=== PATIENT | female | born 1950 | race Caucasian/White ===

== ENCOUNTER 2017-05-30 07:49 | Outpatient (CLI) | payer MEDICARE, OTHER, SELFPAY ==
--- NOTE | 2017-05-30 | COLBX_PTH ---
PATIENT: PRISCILA BHAKTA LOC: EN U#:[id number] AGE/SX: 67/F ROOM: RE05/30/[address]: Dr. Gloria Chowdhury MD : 1950 BED: DIS: 05/30/2017 SPEC #: [id number] RECD: 05/30/17 11:20 STATUS: NORIS ISIDRO #: [id number] DIONNA: 05/30/17 00:[address]: Gloria Chowdhury DEPT: SURGICAL PATHOLOGY RECD BY: Melissa Parker ENTERED: 05/30/17 13:30 SP TYPE: COLON BX OTHR DR: Dr. Leda Cuba MD Tissues: A - Cecum, NOS B - Rectum, NOS Procedures: Surgery Specimen Level IV HEADER OPERATION: Colonoscopy PRE-OP DIAGNOSIS: Screening TISSUE SUBMITTED: A ? Cecal polyp biopsy, B ? Rectal polyp biopsy MICROSCOPIC DIAGNOSIS A. Cecal polyp, biopsy: Tubular adenoma. B. Rectal polyp, biopsy: Fragments of inflammatory polyp. AM:mamie 05/31/17 MICROSCOPIC DESCRIPTION Slides are reviewed. GROSS DESCRIPTION A - Received in fixative is one container labeled with the patient's name and designated cecal polyp biopsy. The specimen consists of one irregular fragment of light enciso soft tissue that measures 0.2 x 0.2 x 0.1 cm. The specimen is totally submitted in one cassette. B - Received in fixative is one container labeled with the patient's name and designated rectal polyp biopsy. The specimen consists of two irregular fragments of light enciso soft tissue that in aggregate measure 0.5 x 0.3 x 0.2 cm. The specimen is totally submitted in one cassette. / AM:mamie 05/30/17 TC:5 CPT: 60662 x2
[2017-05-30 08:11] VITALS: BP 141/77; PULSE 115; RESP 16; TEMP 36.7; O2SAT 97; BMI 41.3
[2017-05-30 09:23] VITALS: BP 116/72; BP 141/77; PULSE 95; RESP 16; TEMP 36; O2SAT 95
[2017-05-30 09:25] VITALS: BP 131/72; BP 141/77; PULSE 98; RESP 16; O2SAT 95
[2017-05-30 09:30] VITALS: BP 123/83; BP 141/77; PULSE 88; RESP 16; O2SAT 95
[2017-05-30 09:35] VITALS: BP 123/79; BP 141/77; PULSE 85; RESP 16; TEMP 36.1; O2SAT 96
[2017-05-30 10:08] VITALS: BP 141/77
--- NOTE | 2017-05-30 11:22 | OP.PCM_ITS ---
Report of Operation Date of Procedure: 05/30/17 Pre-Operative Diagnosis: Screening for colon cancer Type of Anesthesia:: MAC Anesthesiologist: Vargas Gallegos Specimen's removed: Rectal polyp Description of Procedure: Procedure: Colonoscopy After reviewing the risks benefits, the patient was deemed in satisfactory condition to undergo procedure. After obtaining informed consent, the scope was passed under direct visualization. Throughout the procedure, the patient's blood pressure pulse and position saturations were monitored continuously anesthesia. The colonoscope was introduced through the anus and advanced to the cecum, identified by the appendiceal orifice, IC valve and transillumination. The colonoscopy was performed without difficulty. The patient tolerated procedure well. Quality of bowel prep was good. Findings: The perianal and digital rectal exam revealed internal and external hemorrhoids grade 1. Small rectal polyp was seen and removed with forceps. Otherwise the colon ( entire examined portion) appeared normal. Retroflexed view of the distal rectum and anal verge was normal and showed grade 1 internal hemorrhoids Impression: 1. Small rectal polyp 2. The distal rectal and anal verge were normal on retroflexed view. Recommendations: Await biopsy Repeat colonoscopy in 5-10 years for screening purposes depending on pathology
== END 2017-05-30 10:08 | disposition home or self-care (01) ==
LOC: EN 07:52 → ACINP 12:02
PROVIDERS: Family Provider Internal Medicine; PCP Internal Medicine; Visit Provider Surgery
PROC: 0DJD8ZZ Inspection of Lower Intestinal Tract, Via Natural or Artificial Opening Endoscopic (ICD-10-PCS; CPT 45378; principal; 2017-05-30 08:55)
DX: Z12.11 Encounter for screening for malignant neoplasm of colon (principal); D12.0 Benign neoplasm of cecum; K62.1 Rectal polyp; K64.0 First degree hemorrhoids
CPT/HCPCS: 45380; 88305; J7120

== ENCOUNTER → 2017-08-23 13:53 | Outpatient (CLI) | payer MEDICARE, OTHER, SELFPAY ==
[2017-08-20 08:48] LABS: Absolute Lymphocyte Count 1.48 X10^3/ul (0.83-4.51); Absolute Neutrophil Count 5.2 X10^3/uL (2.0-7.7); Basophil# 0.05 X10^3/uL; Basophil% 0.7 % (0-1); Eosinophil# 0.23 X10^3/uL; Eosinophils% 3.1 % (0-5); Hematocrit 39.7 % (37-47); Hemoglobin 12.6 g/dl (12.0-15.0); Lymphocyte # 1.48 X10^3/ul (4.0); Lymphocyte % 20.1 % (19-41); Mean Corp Hgb Conc 31.7 g/gl (32-36); Mean Corpuscular Hgb 29.6 pg (27.0-32.0); Mean Corpuscular Volume 93.4 fL (81-99); Mean Platelet Vol. 10.5 fl (6.2-12.0); Monocyte# 0.38 X10^3/uL; Monocyte% 5.1 % (0-10); Neutrophil # 5.23 X10^3/uL (2.7-7.7); Neutrophil % 70.9 % (47-70); Platelet Count 288 K/mm3 (150-450); RBC Distribution Width CV 13.6 % (11.6-14.6); RBC Distribution Width SD 44.5 fl (35.1-43.9); Red Blood Count 4.25 M/mm3 (4.2-5.4); White Blood Count 7.4 K/mm3 (4.4-11.0)
[2017-08-20 08:55] LABS: POSITIVE COUNT NO; POSITIVE DIFFERENTIAL NO; POSITIVE MORPHOLOGY NO
[2017-08-20 09:12] LABS: Creatinine, Serum 0.66 mg/dL (0.55-1.02); EST Glomerular Filtration Rate 95 mL/min (>60); Est Glom Filt Rate - Afr Amer 115 mL/min (>60)
--- NOTE | 2017-08-23 13:55 | CT_ITS ---
STUDY: CT ABDOMEN AND PELVIS WITH CONTRAST REASON FOR EXAM: Female, 67 years old. History of endometrial carcinoma. This is a radiation treatment planning examination. RADIATION DOSAGE (If Supplied By Facility): CTDIvol = ( 16.32 ) mGy, DLP = ( 1406.08 ) mGycm TECHNIQUE: Transaxial images were obtained from the dome of the diaphragm to the symphysis pubis with oral contrast. 100 ml of Isovue 300 contrast was administered. Individualized dose optimization techniques were used for this CT. COMPARISON: None. FINDINGS: There is a 1.8 cm x 1.3 cm spiculated nodular density in the posterior aspect of the lingular segment of the left upper lobe. Mild increased markings at both lung bases suggestive of bibasilar atelectasis. The visualized portions of the heart are within normal limits. 6.8 mm hypodense nodule in the peripheral lateral portion of the right lobe of the liver most likely represents a small cyst. Normal gallbladder and extrahepatic biliary system. Normal spleen. Normal pancreas. Normal bilateral adrenal glands. Normal right kidney. Normal left kidney. Normal visualized stomach. Normal small intestine. There are scattered colonic diverticula consistent with diverticulosis. There is non-visualization of the appendix. Normal abdominal aorta. Normal inferior vena cava. There is borderline retroperitoneal lymphadenopathy with enlarged nodes no greater than 10mm in the short axis diameter. Normal urinary bladder. There is absence of the uterus consistent with a prior hysterectomy. A small amount of free fluid is seen in the posterior cul-de-sac. Small bilateral inguinal hernias containing fat. Normal osseous structures. CT/Abdomen/Pelvis WITH Contrast IMPRESSION: Small amount of free fluid in the cul-de-sac. Spiculated nodular density in the left lower lobe. Electronically Signed: Reza Bangura MD at 9:06 EST Tel [phone], Service support ,
== END ==
PROVIDERS: Family Provider Internal Medicine; PCP Internal Medicine; Visit Provider Radiology Radiation Oncology
DX: Z01.818 Encounter for other preprocedural examination (principal); C54.1 Malignant neoplasm of endometrium
CPT/HCPCS: 36415; 74177; 82565; 85025; Q9967

== ENCOUNTER → 2017-09-13 09:04 | Outpatient (CLI) | payer MEDICARE, OTHER, SELFPAY ==
[2017-09-13 10:25] LABS: Absolute Lymphocyte Count 0.76 X10^3/ul (0.83-4.51); Absolute Neutrophil Count 3.3 X10^3/uL (2.0-7.7); Basophil# 0.02 X10^3/uL; Basophil% 0.4 % (0-1); Eosinophils% 4.3 % (0-5); Hematocrit 39.4 % (37-47); Hemoglobin 12.4 g/dl (12.0-15.0); Lymphocyte # 0.76 X10^3/ul (4.0); Lymphocyte % 16.5 % (19-41); Mean Corp Hgb Conc 31.5 g/gl (32-36); Mean Corpuscular Hgb 29.6 pg (27.0-32.0); Mean Platelet Vol. 10.7 fl (6.2-12.0); Monocyte# 0.29 X10^3/uL; Monocyte% 6.3 % (0-10); Neutrophil # 3.32 X10^3/uL (2.7-7.7); Neutrophil % 72.3 % (47-70); POSITIVE COUNT NO; POSITIVE DIFFERENTIAL NO; POSITIVE MORPHOLOGY NO; Platelet Count 207 K/mm3 (150-450); RBC Distribution Width CV 13.9 % (11.6-14.6); RBC Distribution Width SD 45.4 fl (35.1-43.9); Red Blood Count 4.19 M/mm3 (4.2-5.4); White Blood Count 4.6 K/mm3 (4.4-11.0)
== END ==
PROVIDERS: Family Provider Internal Medicine; PCP Internal Medicine; Visit Provider Radiology Radiation Oncology
DX: C54.1 Malignant neoplasm of endometrium (principal)
CPT/HCPCS: 36415; 85025

== ENCOUNTER → 2017-10-03 08:00 | Outpatient (CLI) | payer MEDICARE, OTHER, SELFPAY ==
[2017-10-03 08:40] LABS: Absolute Lymphocyte Count 0.51 X10^3/ul (0.83-4.51); Basophil# 0.03 X10^3/uL; Basophil% 0.6 % (0-1); Eosinophil# 0.24 X10^3/uL; Eosinophils% 4.7 % (0-5); Hematocrit 39.1 % (37-47); Hemoglobin 12.4 g/dl (12.0-15.0); Lymphocyte # 0.51 X10^3/ul (4.0); Lymphocyte % 9.9 % (19-41); Mean Corp Hgb Conc 31.7 g/gl (32-36); Mean Corpuscular Hgb 29.8 pg (27.0-32.0); Mean Platelet Vol. 10.3 fl (6.2-12.0); Monocyte# 0.34 X10^3/uL; Monocyte% 6.6 % (0-10); Platelet Count 259 K/mm3 (150-450); RBC Distribution Width CV 14.4 % (11.6-14.6); RBC Distribution Width SD 47.4 fl (35.1-43.9); Red Blood Count 4.16 M/mm3 (4.2-5.4); White Blood Count 5.1 K/mm3 (4.4-11.0)
[2017-10-03 08:42] LABS: Differential Indicated SCAN CRITERIA MET; POSITIVE COUNT NO; POSITIVE DIFFERENTIAL YES; POSITIVE MORPHOLOGY NO
[2017-10-03 09:15] LABS: Cholesterol 182 mg/dL (200); High Density Lipoprotein 34 mg/dL; Triglycerides 147 mg/dL; Very Low Density Lipoprotein 29 mg/dL (5-40)
== END ==
PROVIDERS: Family Provider Internal Medicine; PCP Internal Medicine; Visit Provider Nurse Practitioner Family
DX: N85.4 Malposition of uterus (principal); E78.5 Hyperlipidemia, unspecified
CPT/HCPCS: 36415; 80061; 85025

== ENCOUNTER → 2017-10-21 08:30 | Outpatient (CLI) | payer MEDICARE, OTHER, SELFPAY | PROVIDERS: Visit Provider Nurse Practitioner Family | DX: N39.0 Urinary tract infection, site not specified (principal); M54.9 Dorsalgia, unspecified ==

== ENCOUNTER → 2017-10-24 07:21 | Outpatient (CLI) | payer MEDICARE, OTHER, SELFPAY ==
[2017-10-24 09:21] LABS: ALB/GLOB Ratio 0.9 RATIO (0.9-2.4); AST(SGOT) 11 U/L (15-37); Alanine Aminotransfer ALT/SGPT 12 U/L (13-56); Albumin, Serum 3.5 g/dL (3.2-5.0); Alkaline Phosphatase 80 U/L (45-117); Anion Gap 7 (5-15); BUN 13 mg/dL (7-18); BUN/Creat Ratio 18.6 RATIO (10-20); Calcium,Total 9.2 mg/dL (8.5-10.1); Chloride 106 mmol/L (98-107); EST Glomerular Filtration Rate 89 mL/min (>60); Est Glom Filt Rate - Afr Amer 108 mL/min (>60); Glucose 143 mg/dL (74-106); Potassium 3.4 mmol/L (3.5-5.1); Protein, Total 7.5 g/dL (6.4-8.2); Sodium Level 144 mmol/L (136-145)
== END ==
PROVIDERS: Family Provider Internal Medicine; PCP Internal Medicine; Visit Provider Nurse Practitioner Family
DX: I10 Essential (primary) hypertension (principal)
CPT/HCPCS: 36415; 80053

== ENCOUNTER → 2017-10-30 08:49 | Outpatient (CLI) | payer MEDICARE, OTHER, SELFPAY ==
[2017-10-30 09:03] LABS: Mucous, Urine 0 SEEN /hpf (<or=2+)
[2017-10-30 09:21] LABS: Color, Urine Yellow (Yellow); Glucose, Dipstick Normal (Normal); Ketone-Dipstick Negative (Negative); Leukocyte Esterase-Dipstick 500 /ul (Negative); Nitrite-Dipstick Negative (Negative); Occult Blood-Urine 250 /ul (Negative); Protein-Dipstick 30 mg/dl (Negative); Specific Gravity, Urine 1.025 (1.002-1.030); Urine Bilirubin Dipstick Negative (Negative); Urine Clarity Sl. Cloudy (Clear); Urine Urobilinogen Normal (Normal)
[2017-10-30 09:27] LABS: Bacteria 1+ /hpf (None Seen); Red Blood Cells-Urine 25-50 SEEN /hpf (0-5); Squamous Epithelial Cells - UA 0-5 SEEN /hpf (5-10); White Blood Cells 50-100 SEEN /hpf (0-5)
== END ==
PROVIDERS: Family Provider Internal Medicine; PCP Internal Medicine; Visit Provider Nurse Practitioner Family
DX: R30.0 Dysuria (principal)
CPT/HCPCS: 81001; 87086; 87088

== ENCOUNTER → 2017-11-07 13:40 | Outpatient (CLI) | payer MEDICARE, OTHER, SELFPAY | PROVIDERS: Family Provider Internal Medicine; PCP Internal Medicine; Visit Provider Nurse Practitioner Family | DX: R31.9 Hematuria, unspecified (principal) | CPT/HCPCS: 87086; 87088 ==

== ENCOUNTER → 2018-06-26 20:24 | Outpatient (CLI) | payer MEDICARE, OTHER, SELFPAY ==
[2018-05-30 15:17] VITALS: BMI 43.6
== END ==
PROVIDERS: Family Provider Internal Medicine; PCP Internal Medicine; Referring Provider Internal Medicine; Visit Provider Internal Medicine
DX: G47.30 Sleep apnea, unspecified (principal); G47.10 Hypersomnia, unspecified
CPT/HCPCS: 95811

== ENCOUNTER → 2018-09-11 07:26 | Outpatient (CLI) | payer MEDICARE, OTHER, SELFPAY ==
[2018-07-10 10:34] VITALS: BMI 43.2
--- NOTE | 2018-09-11 07:28 | BI_ITS ---
MAMMOGRAPHY - BILATERAL SCREENING REASON FOR EXAM: Female, 68 years old. Routine annual screening examination. PERTINENT HISTORY: Mother with breast cancer. TECHNIQUE: Digital bilateral breast dipak (3D mammographic acquisition) in the CC and MLO projections. 2-D mediolateral oblique (MLO) and craniocaudad (CC) views of both breasts were obtained. CAD: Full Field Digital Mammography with Computer Added Detection was performed. COMPARISON: Comparison is made with prior study dated May 17, 2017 and May 17, 2011. FINDINGS: Breast Composition: The breasts are heterogeneously dense, which may obscure small masses. There are no dominant masses or suspicious calcifications. Benign appearing bilateral axillary lymph nodes. No other significant abnormalities are identified. There has been no significant change since the prior study. BI/SCREEN MAMM (CAD) W/DIPAK BILAT IMPRESSION: Stable bilateral screening mammogram. Yearly follow-up mammogram recommended. (A) ASSESSMENT CATEGORY: BIRADS Category 2: Benign. A letter regarding these results will be sent to the patient by the facility within 30 days. Approximately 10% of breast cancers are not detected by mammography. A normal mammogram should not delay biopsy of a clinically suspicious abnormality. [id number] Electronically Signed: Reza Bangura, at 9:37 EDT , Service support ,
== END ==
PROVIDERS: Family Provider Internal Medicine; PCP Internal Medicine; Referring Provider Nurse Practitioner Family; Visit Provider Nurse Practitioner Family
DX: Z12.31 Encounter for screening mammogram for malignant neoplasm of breast (principal); Z80.3 Family history of malignant neoplasm of breast
CPT/HCPCS: 77063; 77067

== ENCOUNTER → 2019-07-16 10:33 | Outpatient (CLI) | payer MEDICARE, OTHER, SELFPAY ==
[2019-07-16 10:09] VITALS: BMI 32.3
[2019-07-16 12:36] LABS: Absolute Neutrophil Count 4.3 X10^3/uL (2.0-7.7); Basophil# 0.03 X10^3/uL; Basophil% 0.5 % (0-1); Eosinophils% 1.8 % (0-5); Hematocrit 42.3 % (37-47); Hemoglobin 13.1 g/dL (12.0-15.0); Lymphocyte % 14.3 % (19-41); Mean Corpuscular Hgb 29.9 pg (27.0-32.0); Mean Corpuscular Volume 96.6 fL (81-99); Mean Platelet Vol. 11.4 fl (6.2-12.0); Monocyte# 0.33 X10^3/uL; Monocyte% 5.9 % (0-10); NRBC Flagged by Analyzer 0 % (0-5); Neutrophil # 4.31 X10^3/uL (2.7-7.7); Neutrophil % 77.3 % (47-70); Platelet Count 239 K/mm3 (150-450); RBC Distribution Width CV 13.2 % (11.6-14.6); RBC Distribution Width SD 47.5 fl (35.1-43.9); Red Blood Count 4.38 M/mm3 (4.2-5.4); White Blood Count 5.6 K/mm3 (4.4-11.0)
[2019-07-16 13:09] LABS: ALB/GLOB Ratio 0.9 RATIO (0.9-2.4); AST(SGOT) 15 U/L (15-37); Alanine Aminotransfer ALT/SGPT 17 U/L (13-56); Albumin, Serum 3.6 g/dL (3.2-5.0); Alkaline Phosphatase 97 U/L (45-117); Anion Gap 4 (5-15); BUN 25 mg/dL (7-18); BUN/Creat Ratio 37.9 RATIO (10-20); Calcium,Total 9.1 mg/dL (8.5-10.1); Chloride 107 mmol/L (98-107); Cholesterol 164 mg/dL (200); Creatinine, Serum 0.66 mg/dL (0.55-1.02); EST Glomerular Filtration Rate 95 mL/min (>60); Est Glom Filt Rate - Afr Amer 115 mL/min (>60); Globulin 3.8 g/dL (2.2-4.2); Glucose 106 mg/dL (74-106); High Density Lipoprotein 39 mg/dL; Potassium 4.6 mmol/L (3.5-5.1); Protein, Total 7.4 g/dL (6.4-8.2); Sodium Level 140 mmol/L (136-145); Triglycerides 116 mg/dL; Very Low Density Lipoprotein 23 mg/dL (5-40)
== END ==
PROVIDERS: PCP Internal Medicine; Referring Provider Internal Medicine; Visit Provider Internal Medicine
DX: I10 Essential (primary) hypertension (principal); E78.5 Hyperlipidemia, unspecified
CPT/HCPCS: 36415; 80053; 80061; 85025

== ENCOUNTER 2025-03-01 17:14 | Emergency (ER) | payer MEDICARE, OTHER, SELFPAY ==
[2025-03-01 17:14] VITALS: BP 173/89; PULSE 133; RESP 20; TEMP 36.9; O2SAT 94; BMI 47.6
--- NOTE | 2025-03-01 17:31 | EKG12_ITS ---
Test Reason : SOB Blood Pressure : */* mmHG Vent. Rate : 131 BPM Atrial Rate : 131 BPM P-R Int : 140 ms QRS Dur : 82 ms QT Int : 312 ms P-R-T Axes : 64 25 70 degrees QTcB Int : 460 ms Sinus tachycardia Otherwise normal ECG Confirmed by Nilay Xiao ([id number]), material expeditor NICK LOW ([id number]) on 03/02/2025 1:21:54 PM Referred By: EDGARDO Confirmed By: Nilay Xiao
--- NOTE | 2025-03-01 17:32 | ED.VIS.DYS ---
HPI History of Present Illness Chief Complaint: Shortness of Breath Informant: patient Onset/Context/Timing Onset: Days Context: gradual Timing: Continuous Quality: Positive for Wheezing Current Severity: Mild Maximum Severity: Mild Worsened by: Coughing Relieved by: Nothing Associated Symptoms cough Chest Pain: Positive for None Narrative Narrative: 74-year-old female history of prior uterine cancer 7 years ago to hysterectomy. Also hypothyroidism. No underlying lung disease. No history of DVT or PE or risk factors. No cardiac disease. [place] for the last 3 days or so she has had a nonproductive cough with wheezing. Denies any chest pain. No fever or chills. No hemoptysis. No leg pain or swelling. PE Risk Factors: Negative for Cancer, OCP + Smoking + > 35, Prior DVT or PE, Recent immobilization, Recent surgery or Recent travel Prior similar symptoms: No Recent Illness/Hospitalization: No PFSH PFSH Medical History Uterine cancer Hypothyroidism Home Medications ?Medication ?Instructions ?Recorded ?Last Taken ?Type lisinopril 10 mg tablet 10 mg PO QDAY #90 tabs 07/16/19 Unknown Rx sertraline 50 mg tablet See Rx Instructions .Route 07/13/20 Unknown Rx .COMPLEX #90 tabs albuterol sulfate 90 mcg/actuation 2 inh inhalation Q4H PRN shortness 03/01/25 Unknown Rx aerosol inhaler of breath or wheezing #8.5 grams prednisone 20 mg tablet 40 mg (2 x 20 mg) PO DAILY 7 days 03/01/25 Unknown Rx #14 tabs Allergy/AdvReac Type Severity Reaction Status Date / Time Penicillins AdvReac Unknown Verified 03/01/25 17:15 Family History Mother Breast cancer Father Cancer Lung Heart disease Myocardial infarction, Onset Age: 65 Daughter Cancer mouth Surgical History History of hysterectomy for cancer cyst removed from tailbone Social History Smoking Status: Never smoker alcohol intake: current alcohol intake frequency: holidays/special occasions only Alcohol type: wine substance use type: does not use caffeine: Yes seatbelt use: always do you feel safe at home: Yes ROS ROS ED ROS Narrative Cough. Shortness of breath. Wheezing. Constitutional Constitutional ED: Denies fever(s) Eyes Eyes: Denies blurry vision ENT ENT ED: Denies ear pain or rhinorrhea Cardiovascular Cardiovascular: Denies chest pain or palpitations Respiratory/Chest Respiratory/Chest: Reports cough and dyspnea; Denies sputum Gastrointestinal Gastrointestinal: Denies abdominal pain or constipation Genitourinary Genitourinary ED: Denies dysuria or hematuria Musculoskeletal Musculoskeletal: Denies arthralgias Integumentary Denies abscess or Abrasions Neurologic Neurologic: Denies headache(s) Psychiatric Psychiatric: Denies anxiety or depression Endocrine Endocrinology: Denies cold intolerance Hematologic/Lymphatic Hematologic/Lymphatic: Denies easy bleeding, easy bruising or lymphadenopathy Allergic/Immunologic Allergic/Immunologic ED: Denies mouth swelling, tongue swelling or urticaria EXAM Physical Exam Narrative Exam Narrative: 74-year-old female sitting upright in bed. Vital signs are stable and she is tachycardic 133. Pulse ox 94% on room air no hypoxia. She does not look septic or toxic. Otherwise in no distress. Afebrile. H EENT exam pupils round react to light. Moist membranes. Neck nontender no JVD. No lymphadenopathy. Back nontender. Lungs dry cough. Expiratory wheezing. No rales or rhonchi. Equal symmetric. Heart tachycardic 130 no murmur. Chest wall and ribs nontender. Abdomen soft nontender. Moving all 4 extremities. Calves nontender without edema or cords. Normal dorsi plantarflexion. Normal seconds grader strength. Neurologically patient is awake and alert. Answering questions following commands. No focal motor deficits. Const Vital Signs: 03/01/25 17:14 03/01/25 17:37 03/01/25 17:37 Temperature 98.4 F 98.4 F Temperature Source Oral Oral Pulse Rate 133 H 126 H 133 H Respiratory Rate 20 H 20 H 20 H Respiratory Depth Respiratory Pattern Blood Pressure 173/89 H 173/89 H Blood Pressure Mean 117 117 Pulse Ox 94 94 Oxygen Delivery Method Room Air Room Air 03/01/25 17:37 03/01/25 18:19 03/01/25 19:14 Temperature 98.4 F 98.3 F Temperature Source Oral Oral Pulse Rate 124 H 125 H Respiratory Rate 16 20 H Respiratory Depth Respiratory Pattern Blood Pressure 154/67 H 152/81 H Blood Pressure Mean 96 104 Pulse Ox 92 94 90 Oxygen Delivery Method Room Air Room Air Room Air 03/01/25 19:29 Temperature Temperature Source Pulse Rate Respiratory Rate Respiratory Depth Normal Respiratory Pattern Normal Blood Pressure Blood Pressure Mean Pulse Ox Oxygen Delivery Method Room Air Positive well nourished and well developed; Negative for cachectic, contractures or unkempt General Appearance ED: well developed and NAD; Negative for unkempt, cachectic, contractures or pallor Nutritional Appearance: Negative for cachectic HEENT Reports moist mucous membranes atraumatic; Negative for trauma or tenderness Eyes PERRL and EOMs intact bilaterally Neck no lymphadenopathy, supple, no meningeal signs and no JVD Resp No normal respiratory effort and No clear to auscultation bilaterally Resp Narrative: Prolonged expiratory phase. Dry cough. Expiratory wheezes. Auscultation: wheezes; Negative for rales, rhonchi or diminished lung sounds Cardio regular rhythm, S1 normal heart sound, S2 normal heart sound and no murmurs; Negative for regular rate Rate: tachycardic GI non-tender, non-distended and no masses Auscultation: normoactive bowel sounds Palpation: soft; Negative for tender, guarding or rebound tenderness present Back/Spine no CVA tenderness and normal to inspection Extremity normal to inspection Neuro oriented x3, CN's II-XII intact bilaterally and no sensory deficits noted Sensorium / Orientation: alert, oriented to person, oriented to place and oriented to time; Negative for orientation impaired, confused or lethargic Speech: speech normal Motor Exam: strength 5/5 throughout Psych mental status grossly normal Appearance: Negative for unkempt Attitude: No agitated and No other Mood & Affect: Negative for depressed, anxious or tearful Thought Process: normal thought process Skin no wounds and skin turgor normal General Skin Exam: Negative for jaundice or pallor Lesions: no lesions Rashes: no rashes Trauma: Negative for abrasion or laceration MDM MDM MDM Narrative Medical decision making narrative: 74-year-old female short of breath or wheezing suspect underlying URI either pneumonia or possibly COVID or another viral syndrome. Cardiac and respiratory workup along with Solu-Medrol IV for the bronchospasm, albuterol and DuoNeb aerosols for the wheezing. Repeat exam patient is doing well at 6:45 PM. She is still wheezing but breathing easier after the aerosols and the IV Solu-Medrol. We have gone over her initial test results and chest x-ray. Awaiting her COVID and flu test. Clinically I do think this is a viral syndrome. Patient doing well on exam at 7:47 PM. She is comfortable being discharged home. She is sitting upright in chair without oxygen her pulse ox is in the low 90s. She be treated as a viral URI. Placed on prednisone 40 mg a day for a week. A Proventil inhaler. Both there is prescriptions to be sent to her pharmacy. Follow-up with her primary care physician this week. Return if worse. Patient is comfortable with the plan. History & Record Review Discussion w/independent historian: Patient Additional record(s) reviewed:: Prior inpatient record, Prior outpatient record, Prior ED visit and Prior labs Lab Data Attestation: I reviewed the patient's lab results. Lab results narrative: CBC shows white count of 13.3. H&H of 13 and 40. Platelets 273. Electrolytes show a gap of 15. Normal BUN of 8 creatinine 0.5. Glucose 176. Troponin 11. COVID, flu and RSV all negative. Chest x-ray chronic. No acute process. Labs: Laboratory Results - last 24 hr 03/01/25 17:30 WBC 13.3 H RBC 4.43 Hgb 13.5 Hct 40.7 MCV 91.9 MCH 30.5 MCHC 33.2 RDW Std Deviation 42.2 RDW Coeff of [place]ora 12.7 Plt Count 273 MPV 10.7 Immature Gran % (Auto) 1.000 H Neut % (Auto) 85.3 H Lymph % (Auto) 7.0 L [place] % (Auto) 4.6 Eos % (Auto) 1.6 Baso % (Auto) 0.5 Absolute Neuts (auto) 11.4 H Absolute Lymphs (auto) 0.93 Nucleated RBC % 0 Sodium 137 Potassium 3.4 Chloride 100 Carbon Dioxide 23.0 Anion Gap 15 BUN 8 Creatinine 0.58 L Estim Creat Clear Calc 77.57 Est GFR (MDRD) Non-Af 96 BUN/Creatinine Ratio 14.7 Glucose 176 H Calcium 9.4 Troponin T High Sens 11 Radiography Chest X-Ray - ED: 2 View, Read by ED Physician, Normal, Heart, Lungs, Bony Structures, No Acute Disease and Chronic Changes Diagnostic Testing: Clinical Impression(s) from Imaging Studies Chest X-Ray 03/01/25 18:05 IMPRESSION: NO ACUTE FINDINGS. Reading Location: [facility] Chest x-ray, 2 views, AP and lateral, interpreted by myself shows no acute abnormality. Normal cardiac silhouette. No pneumonia. No effusions. Also read by the radiologist and agrees. Rhythm Strip Rhythm Strip: Sinus Tach Rate: 131 Ectopy: None EKG Initial EKG: Attestation: I personally reviewed and interpreted this EKG as follows: Interpretation: No Acute Injury Pattern and Sinus Tachycardia Comments: Sinus tachycardia rate of 131 no acute signs of SD or ischemia. No dysrhythmia. No S1Q3T3. Discharge Plan Triage Chief Complaint: Shortness of Breath ED Provider: Lavelle Barrios Dx/Rx/DC Orders Clinical Impression: Viral URI, Bilateral wheezing Instructions: ED URI, Viral W/ Wheezing (Adult) Prescriptions: New prednisone 20 mg tablet 40 mg PO DAILY 7 Days Qty: 14 0RF albuterol sulfate 90 mcg/actuation HFA aerosol inhaler 2 inh inhalation Q4H PRN (Reason: shortness of breath or wheezing) Qty: 8.5 0RF No Action lisinopril 10 mg tablet 10 mg PO QDAY Qty: 90 3RF sertraline 50 mg tablet See Rx Instructions .ROUTE .COMPLEX Qty: 90 3RF Dose Instruction: TAKE 1 TABLET BY MOUTH EVERY DAY Rx Instructions: TAKE 1 TABLET BY MOUTH EVERY DAY Primary Care Provider: Leda Cuba Referrals: Leda Cuba MD [Primary Care Provider] - 3-5 Days Activity Restrictions/Additional Instructions: Prednisone 40 mg a day starting tomorrow to help you with the wheezing and shortness of breath. Use the inhaler 2 puffs every 2-4 hours as needed if short of breath or wheezing. Follow-up with your doctor this week to ensure you are improving. Return to emergency department if you are feeling worse. Your chest x-ray and labs look good. Your COVID and flu test was negative. I suspect you have a viral respiratory infection. You do not need an antibiotic at this time. Print Language: Panamanian Disposition Disposition: Home, Self Care
[2025-03-01] MEDS: Albuterol 2.5 MG/3 ML VIAL.NEB. INHALATION (17:36)
[2025-03-01 17:37] VITALS: BP 173/89; PULSE 126; PULSE 133; RESP 20; TEMP 36.9; O2SAT 92; O2SAT 94
--- OUTSIDE RECORDS SUMMARY | 2025-03-01 18:04 | XMS RPT_ITS | CCD ---
Author Organization [facility] Inform ion Partnership [facility] Care Team Providers Care Job Developer Name Role Phone Jimenez AUGUST, Kristy Adames Unavailable Unavailable Ce Paulino Unavailable Unavailable Uri Aranda Unavailable Unavailable PROVIDER, UNKNOWN Unavailable Unavailable No, PCP Unavailable Unavailable Uri Aranda Unavailable Unavailable Uri Aranda Unavailable Unavailable Allergies Allergy Classification Reported Allergen(s) Allergy Type Date of Onset Reaction(s) Facility (3 sources) penicillin v Drug Allergy 7 unknown, childhood reaction [facility] Work Phone: Problems Active Problems Problem Classification Problem Date Documented Date Episodic/Chronic Cancer of uterus (2 sources) Malignant neoplasm of endometrium; Translations: [Malignant neoplasm of endometrium] Onset: 07-30-2017 Chronic Menopausal disorders (3 sources) Postmenopausal bleeding; Translations: [Postmenopausal bleeding] Onset: 04-20-2017 04-20-2017 Chronic Other nutritional; endocrine; and metabolic disorders (2 sources) Morbid (severe) obesity due to excess calories; Translations: [Morbid (severe) obesity due to excess calories] Onset: 07-30-2017 Chronic Unclassified (2 sources) Body mass index (BMI) 40.0-44.9, adult; Translations: [Body mass index (BMI) 40.0-44.9, adult] Onset: 07-30-2017 Chronic Unclassified (3 sources) Screening for malignant neoplasm of colon ; Translations: [Encounter for screening for malignant neoplasm of colon] Onset: 04-20-2017 04-20-2017 Unclassified (3 sources) Screening mammography ; Translations: [Encounter for screening mammogram for malignant neoplasm of breast] Onset: 04-20-2017 04-20-2017 Unclassified (3 sources) Screening - health check; Translations: [Encounter for general adult medical examination without abnormal findings] Onset: 04-20-2017 04-20-2017 Past or Other Problems Problem Classification Problem Date Documented Date Episodic/Chronic Allergic reactions (2 sources) Allergy status to penicillin; Translations: [Allergy status to penicillin] Onset: 07-30-2017 Episodic Unclassified (3 sources) Encounter for screening for lipoid disorders; Translations: [Encounter for screening for lipoid disorders] Onset: 04-20-2017 04-20-2017 Episodic Unclassified (3 sources) Postmenopausal state; Translations: [Asymptomatic menopausal state] Onset: 04-20-2017 04-20-2017 Episodic Results Test Name Value Interpretation Reference Range Facility Virtual Office Visiton 09-29 Virtual Office Visit [facility] [address] [place] [address] OFFICE VISIT Date of Service: 09/30/19 MR#: [id number] Acct: [id number] Patient: PRISCILA BHAKTA Rep #: [id number] : 1950 Provider: Efrain Finch D.O. Age/Sex: 69/F Location: [facility] Status: Signed Intake Intake Visit Reasons: 1 Y FU Chief Complaint: Check up - needs refills Allergies Penicillins Adverse Reaction (Verified 09/29/19 14:10) Unknown Medications lisinopril 10 mg tablet 10 mg PO QDAY #90 tab 07/16/19 [Rx Confirmed 09/29/19] sertraline 50 mg tablet See Rx Instructions .ROUTE .COMPLEX #90 tablet 07/16/19 [Rx Confirmed 09/29/19] PFSH Medical History Uterine cancer (Chronic) Hypothyroidism (Chronic) Surgical History History of hysterectomy for cancer (Acute) cyst removed from tailbone (Acute) Family History Mother Breast cancer Father Cancer Lung Heart disease Myocardial infarction, Onset Age: 65 Daughter Cancer mouth Social History (Updated 09/30/19 @ 07:[address] Efrain Finch DO) Smoking Status: Never smoker alcohol intake: current alcohol intake frequency: holidays/special occasions only Alcohol type: wine substance use type: does not use caffeine: Yes seatbelt use: always do you feel safe at home: Yes HPI HPI Chief Complaint: Check up - needs refills Details: Patient was informed that this visit will be billed to patient. This visit was conducted during . The patient is a 69-year-old female who participated in a virtual telephone encounter today due to a history of obstructive sleep apnea. The patient's LATOYA has been well controlled on nocturnal CPAP therapy. Her compliance report was personally reviewed today and revealed an overall compliance rate of 100% over the last 30 days. She is currently utilizing her CPAP on average 5.5 hours per night. She has a prescribed pressure support of 13 cm of water with a residual AHI of 3.1. No significant air leaks were noted. The patient reports feeling rested upon awakening in the morning. She denies the presence of significant daytime hypersomnolence or regular napping. She denies morning headaches. Her weight and appetite have been stable. ROS Const Constitutional: No chills, fatigue, fever(s) or night sweats Eyes Eyes: No blurry vision or change in vision ENT ENT: No abnormal hearing or post nasal drip Resp Respiratory: No cough or shortness of breath Cardio Cardiology: No chest pain at rest Gastro GI: No abdominal pain Genitourinary-Female: No difficulty urinating or urinary urgency Neuro Neurology: No abnormal hearing or behavioral changes Psych Psychiatric: No behavioral changes Endo Endocrine: No fatigue Exam Details: Details:: Exam was limited due to phone visit with no video. Quality Reporting Medication Reconciliation (CMS 68) lisinopril 10 mg PO QDAY sertraline TAKE 1 TABLET BY MOUTH EVERY DAY BMI Screening (CMS 69) Body Mass Index (BMI): 32.3 Tobacco Screening (CMS 138) Smoking Status: Never smoker Assessment AND Plan 1. LATOYA (obstructive sleep apnea) G47.33 Plan The patient has remained compliant with the use of nocturnal CPAP therapy with a pressure support of 13 cm of water, and continues to benefit clinically from its use. This regimen will be continued without change. Plan Detail Follow Up 1 Year (DMB) 09/30/19 0752 Date Efrain Gandhi Signature: Date (if applicable) CC: Leda Cuba MD [facility] Virtual Office Visit [facility] [address] [place] [address] OFFICE VISIT Date of Service: 09/30/19 MR#: [id number] Acct: [id number] Patient: PRISCILA BHAKTA Rep #: [id number] : 1950 Provider: Dr. Efrain Finch DO Age/Sex: 69/F Location: [facility] Status: Signed Intake Vital Signs 09/30/19 BMI 32.3 Intake Visit Reasons: 1 Y FU Chief Complaint: Check up - needs refills Allergies Penicillins Adverse Reaction (Verified 09/29/19 14:10) Unknown Medications lisinopril 10 mg tablet 10 mg PO QDAY #90 tab 07/16/19 [Rx Confirmed 09/29/19] sertraline 50 mg tablet See Rx Instructions .ROUTE .COMPLEX #90 tablet 07/16/19 [Rx Confirmed 09/29/19] PFSH Medical History Uterine cancer (Chronic) Hypothyroidism (Chronic) Surgical History History of hysterectomy for cancer (Acute) cyst removed from tailbone (Acute) Family History Mother Breast cancer Father Cancer Lung Heart disease Myocardial infarction, Onset Age: 65 Daughter Cancer mouth Social History (Updated 11/21/19 @ 07:[address] Efrain Finch DO) Smoking Status: Never smoker alcohol intake: current alcohol intake frequency: holidays/special occasions only Alcohol type: wine substance use type: does not use caffeine: Yes seatbelt use: always do you feel safe at home: Yes HPI HPI Chief Complaint: Check up - needs refills Details: Patient was informed that this visit will be billed to patient. This visit was conducted during COVID-19 pandemic. The patient is a 69-year-old female who participated in a virtual telephone encounter today due to a history of obstructive sleep apnea. The patient's LATOYA has been well controlled on nocturnal CPAP therapy. Her compliance report was personally reviewed today and revealed an overall compliance rate of 100% over the last 30 days. She is currently utilizing her CPAP on average 5.5 hours per night. She has a prescribed pressure support of 13 cm of water with a residual AHI of 3.1. No significant air leaks were noted. The patient reports feeling rested upon awakening in the morning. She denies the presence of significant daytime hypersomnolence or regular napping. She denies morning headaches. Her weight and appetite have been stable. ROS Const Constitutional: No chills, fatigue, fever(s) or night sweats Eyes Eyes: No blurry vision or change in vision ENT ENT: No abnormal hearing or post nasal drip Resp Respiratory: No cough or shortness of breath Cardio Cardiology: No chest pain at rest Gastro GI: No abdominal pain Genitourinary-Female: No difficulty urinating or urinary urgency Neuro Neurology: No abnormal hearing or behavioral changes Psych Psychiatric: No behavioral changes Endo Endocrine: No fatigue Exam Details: Details:: Exam was limited due to phone visit with no video. Quality Reporting Medication Reconciliation (CMS 68) lisinopril 10 mg PO QDAY sertraline TAKE 1 TABLET BY MOUTH EVERY DAY BMI Screening (CMS 69) Body Mass Index (BMI): 32.3 Tobacco Screening (CMS 138) Smoking Status: Never smoker Assessment Plan 1. LATOYA (obstructive sleep apnea) G47.33 Plan The patient has remained compliant with the use of nocturnal CPAP therapy with a pressure support of 13 cm of water, and continues to benefit clinically from its use. This regimen will be continued without change. Plan Detail Follow Up 1 Year (DMB) Coding Level of Care Code Level 2 Telephone Diagnoses LATOYA (obstructive sleep apnea) G47.33 Time Spent (min) 11/21/19 0713 Date Efrain Gandhi Signature: Date (if applicable) CC: Dr. Leda Cuba MD Normal [facility] CBC W/Diff, Automatedon - Absolute Neut 4.3 X10 3/uL Normal 2.0-7.7 [facility] Comment on above: Performed By: #### L 100.0100, L500.4050, L500.4100 #### [facility] [address] [place], [address] Basophils/100 WBC (Bld) 0.5 % Normal 0-1 [facility] Comment on above: Performed By: #### L 100.0100, L500.4050, L500.4100 #### [facility] [address] [place], [address] Eosinophils/100 WBC (Bld) 1.8 % Normal 0-5 [facility] Comment on above: Performed By: #### L 100.0100, L500.4050, L500.4100 #### [facility] [address] [place], [address] Erythrocyte distribution width (RBC) [Ratio] 13.2 % Normal 11.6-14.6 [facility] Comment on above: Performed By: #### L 100.0100, L500.4050, L500.4100 #### [facility] [address] [place], [address] Hematocrit (Bld) [Volume fraction] 42.3 % Normal 37-47 [facility] Comment on above: Performed By: #### L 100.0100, L500.4050, L500.4100 #### [facility] [address] [place], [address] Hemoglobin (Bld) [Mass/Vol] 13.1 g/dL Normal 12.0-15.0 [facility] Comment on above: Performed By: #### L 100.0100, L500.4050, L500.4100 #### [facility] [address] [place], [address] IM GRAN % 0.200 % Normal 0.0-0.9 [facility] Comment on above: Result Comment: IG% - Immature Granulocytes (promyelocytes, myelocytes and metamyelocytes) > 1% indicates that a LEFT SHIFT is Present. Performed By: #### L 100.0100, L500.4050, L500.4100 #### [facility] [address] [place], [address] Lymphocytes (Bld) [#/Vol] 0.80 X10 3/uL Low 0.83-4.51 [facility] Comment on above: Performed By: #### L 100.0100, L500.4050, L500.4100 #### [facility] [address] [place], [address] Lymphocytes/100 WBC (Bld) 14.3 % Low 19-41 [facility] Comment on above: Performed By: #### L 100.0100, L500.4050, L500.4100 #### [facility] [address] [place], [address] MCH (RBC) [Entitic mass] 29.9 pg Normal 27.0-32.0 [facility] Comment on above: Performed By: #### L 100.0100, L500.4050, L500.4100 #### [facility] [address] [place], [address] MCHC (RBC) [Mass/Vol] 31.0 g/dL Low 32-36 [facility] Comment on above: Performed By: #### L 100.0100, L500.4050, L500.4100 #### [facility] [address] [place], [address] MCV (RBC) [Entitic vol] 96.6 fL Normal 81-99 [facility] Comment on above: Performed By: #### L 100.0100, L500.4050, L500.4100 #### [facility] [address] [place], [address] Monocytes/100 WBC (Bld) 5.9 % Normal 0-10 [facility] Comment on above: Performed By: #### L 100.0100, L500.4050, L500.4100 #### [facility] [address] [place], [address] Neutrophils/100 WBC (Bld) 77.3 % High 47-70 [facility] Comment on above: Performed By: #### L 100.0100, L500.4050, L500.4100 #### [facility] [address] [place], [address] NRBC, FLAGGED 0 % Normal 0-5 [facility] Comment on above: Performed By: #### L 100.0100, L500.4050, L500.4100 #### [facility] [address] [place], [address] Platelet mean volume (Bld) [Entitic vol] 11.4 fL Normal 6.2-12.0 [facility] Comment on above: Performed By: #### L 100.0100, L500.4050, L500.4100 #### [facility] [address] [place], [address] Platelets (Bld) [#/Vol] 239 10*3/uL Normal 150-450 [facility] Comment on above: Performed By: #### L 100.0100, L500.4050, L500.4100 #### [facility] [address] [place], [address] RBC (Bld) [#/Vol] 4.38 M/mm3 Normal 4.2-5.4 [facility] Comment on above: Performed By: #### L 100.0100, L500.4050, L500.4100 #### [facility] [address] [place], [address] RDW SD 47.5 fl High 35.1-43.9 [facility] Comment on above: Performed By: #### L 100.0100, L500.4050, L500.4100 #### [facility] [address] [place], [address] WBC (Bld) [#/Vol] 5.6 10*3/uL Normal 4.4-11.0 [facility] Comment on above: Performed By: #### L 100.0100, L500.4050, L500.4100 #### [facility] [address] [place], [address] Comprehensive Metabolic Prof [facility] 07-16-2019 Albumin [Mass/Vol] 3.6 g/dL Normal 3.2-5.0 [facility] Comment on above: Performed By: #### L 100.0100, L500.4050, L500.4100 #### [facility] [address] [place], [address] Albumin/Globulin [Mass ratio] 0.9 {ratio} Normal 0.9-2.4 [facility] Comment on above: Performed By: #### L 100.0100, L500.4050, L500.4100 #### [facility] [address] [place], [address] ALK P 97 U/L Normal 45-117 [facility] Comment on above: Performed By: #### L 100.0100, L500.4050, L500.4100 #### [facility] [address] [place], [address] ALT [Catalytic activity/Vol] 17 U/L Normal 13-56 [facility] Comment on above: Performed By: #### L 100.0100, L500.4050, L500.4100 #### [facility] [address] [place], [address] AST [Catalytic activity/Vol] 15 U/L Normal 15-37 [facility] Comment on above: Performed By: #### L 100.0100, L500.4050, L500.4100 #### [facility] [address] [place], [address] Bilirubin [Mass/Vol] 0.20 mg/dL Normal 0.20-1.00 [facility] Comment on above: Performed By: #### L 100.0100, L500.4050, L500.4100 #### [facility] [address] [place], [address] Calcium [Mass/Vol] 9.1 mg/dL Normal 8.5-10.1 [facility] Comment on above: Performed By: #### L 100.0100, L500.4050, L500.4100 #### [facility] [address] [place], [address] Chloride [Moles/Vol] 107 mmol/L Normal 98-107 [facility] Comment on above: Performed By: #### L 100.0100, L500.4050, L500.4100 #### [facility] [address] [place], [address] CO2 [Moles/Vol] 29.0 mmol/L Normal 21.0-32.0 [facility] Comment on above: Performed By: #### L 100.0100, L500.4050, L500.4100 #### [facility] [address] [place], [address] Creatinine [Mass/Vol] 0.66 mg/dL Normal 0.55-1.02 [facility] Comment on above: Result Comment: The validity of the calculated GFR AND GFRAA in patients over 70 years has not been determined. Clinical correlation is essential. Performed By: #### L 100.0100, L500.4050, L500.4100 #### [facility] [address] [place], [address] EST GFR - AA 115 mL/min Normal >60 [facility] Comment on above: Result Comment: Afri can [place]ral[place] GFR Calc Performed By: #### L 100.0100, L500.4050, L500.4100 #### [facility] [address] [place], [address] GAP 4 Low 5-15 [facility] Comment on above: Performed By: #### L 100.0100, L500.4050, L500.4100 #### [facility] [address] [place], [address] GFR/1.73 sq M predicted among non-blacks MDRD (S/P/Bld) [Vol rate/Area] 95 mL/min/{1.73_m2} Normal >60 [facility] Comment on above: Result Comment: Non- GFR Calc Performed By: #### L 100.0100, L500.4050, L500.4100 #### [facility] [address] [place], [address] Globulin (S) [Mass/Vol] 3.8 g/dL Normal 2.2-4.2 [facility] Comment on above: Performed By: #### L 100.0100, L500.4050, L500.4100 #### [facility] [address] [place], [address] Glucose [Mass/Vol] 106 mg/dL Normal 74-106 [facility] Comment on above: Result Comment: Fast ing Glucose result from 100 to 125 mg/dL suggests IMPAIRED HOMEOSTASIS per A.D.A. criteria. Please note revised GLUCOSE reference range effective 2017. Performed By: #### L 100.0100, L500.4050, L500.4100 #### [facility] [address] [place], [address] Potassium [Moles/Vol] 4.6 mmol/L Normal 3.5-5.1 [facility] Comment on above: Performed By: #### L 100.0100, L500.4050, L500.4100 #### [facility] [address] [place], [address] Sodium [Moles/Vol] 140 mmol/L Normal 136-145 [facility] Comment on above: Performed By: #### L 100.0100, L500.4050, L500.4100 #### [facility] [address] [place], [address] T PROT 7.4 g/dL Normal 6.4-8.2 [facility] Comment on above: Performed By: #### L 100.0100, L500.4050, L500.4100 #### [facility] [address] [place], [address] Urea nitrogen [Mass/Vol] 37.9 RATIO High 10-20 [facility] Comment on above: Performed By: #### L 100.0100, L500.4050, L500.4100 #### [facility] [address] [place], [address] Urea nitrogen [Mass/Vol] 25 mg/dL High 7-18 [facility] Comment on above: Performed By: #### L 100.0100, L500.4050, L500.4100 #### [facility] [address] [place], [address] Internal Medicine Office Vis jair 07-16-2019 Internal Medicine Office Visit [facility] [address] [address] [place] [address] OFFICE VISIT Date of Service: 07/16/19 MR#: [id number] Acct: [id number] Name: PRISCILA BHAKTA Rep #: [id number] : 1950 Provider: Leda Cuba MD Age/Sex: 69/F Location: [facility] Status: Signed Intake Vital Signs07/16/19 Height 5 ft 1 in 07/16/19 Weight: 171 lb 07/16/19 BP 136/80 H 07/16/19 Blood Pressure Location Lt brachial 07/16/19 Position Sitting 07/16/19 Respiration 18 Intake Visit Reasons: CHECK UP Chief Complaint: Check up - needs refills Is patient in pain?: No Allergies Penicillins Adverse Reaction (Verified 07/16/19 10:08) Unknown Medications lisinopril 10 mg tablet 10 mg PO QDAY #90 tab 07/16/19 [Rx Confirmed 07/16/19] sertraline 50 mg tablet See Rx Instructions .ROUTE .COMPLEX #90 tablet 07/16/19 [Rx Confirmed 07/16/19] PFSH Medical History Uterine cancer (Chronic) Hypothyroidism (Chronic) Surgical History History of hysterectomy for cancer (Acute) cyst removed from tailbone (Acute) Family History Mother Breast cancer Father Cancer Lung Heart disease Myocardial infarction, Onset Age: 65 Daughter Cancer mouth Social History (Updated 07/16/19 @ 12:14 by Leda Cuba MD) Smoking Status: Never smoker alcohol intake: current alcohol intake frequency: holidays/special occasions only Alcohol type: wine substance use type: does not use caffeine: Yes seatbelt use: always do you feel safe at home: Yes HPI HPI Chief Complaint: Check up - needs refills Details: PRISCILA BHAKTA, is a 69 F who presents to the office today for follow up of her chronic medical conditions. No acute concerns at this time. History of hypertension, Bp is stable. Currently on Lisinopril which she reports compliance with. Also chronic history of anxiety and depression which is stable. Doing well on CPAP for sleep apnea. Scheduled to follow-up with gynecology next month. Also following up at the cancer treatment center due to history of uterine cancer. ROS Const Constitutional: No chills, fatigue, fever(s), frequent falls, malaise, weakness, sleep problems or change in appetite Eyes Eyes: No blurry vision, change in vision, double vision, discharge or visual disturbances ENT ENT: No abnormal hearing, ear pain, ear pressure, tinnitus or dizziness/vertigo Resp Respiratory: No cough, shortness of breath or wheezing Cardio Cardiology: No chest pain at rest, chest pain with exertion, shortness of breath, dyspnea on exertion, generalized swelling, irregular heart rhythm, lightheadedness, orthopnea, fast heart rate or palpitations Gastro GI: No abdominal pain, change in bowel habits, constipation, diarrhea, nausea/dyspepsia or vomiting Genitourinary-Female: No difficulty urinating, burning urination, painful urination, urinary incontinence, urinary frequency, urinary urgency, urinary hesitancy, urinary retention, Frequent nighttime urination/ nocturia, sexual problems, genital lesions, abnormal vaginal bleeding, pelvic pain, vaginal dryness, vaginal odor or Vaginal Itching Musc Musculoskeletal: No joint pain, back pain, joint swelling, limited range of motion, numbness or tingling Skin Skin: No change in skin color, itching, rash or wounds Breast Breast: No breast lump or breast pain Neuro Neurology: No abnormal hearing, unsteady gait/balance, dizziness, weakness, frequent falls, loss of vision, memory loss, numbness, tingling or visual disturbances Psych Psychiatric: No anxiety, No change in appetite, No depression, No memory loss, No Thoughts of harming yourself/Others Endo Endocrine: No fatigue, heat intolerance, increased thirst/drinking, increased hunger or increased urination Aller/Imm Allergy/Immunologic: No itchy eyes, seasonal allergy symptoms or wheezing Julian/Lymp Hematologic/Lymphatic: No easy bleeding, easy bruising or enlarged lymph nodes Exam Const General: cooperative, no acute distress Orientation: alert, awake, oriented x3 HENMT Head: atraumatic Ears: hearing grossly normal bilaterally Resp Effort AND Inspection: normal respiratory effort, able to speak in complete sentences Auscultation: Bilateral: Clear to Auscultation Cardio Rate: regular rate Rhythm: regular rhythm Heart Sounds: S1 normal, S2 normal GI Inspection: obesity Palpation: soft, no hepatosplenomegaly Neuro General: alert, awake, oriented x3, moves all extremities, CN's II-XI intact bilaterally Extrem Other: Trace bilateral pitting edema. Psych Appearance: grossly normal Mood: congruent mood Affect: normal affect Immunizations Prevnar 13 (PF) Performing Provider: Leda Cuba MD Administered by: Sally Gould on 07/16/19 10:37 Dose Route Admin Location Lot Number Expiration Date NDC Privacy Officer 0.5 mL IM Left Deltoid [id number] 06/18/21 5938-4131-86 [employer] VIS Given Date VIS Provided VIS Publication Date 07/16/19 Single Vaccine 15 Eligibility Eligibility Date Funding Source Assessment AND Plan 1. Essential hypertension I10 Plan Stable. Continue current medication and lifestyle/dietary modifications. Orders Orders: 2. Anxiety and depression F41.9; F32.9 Plan Doing well on sertraline, refill sent. Continue current management. 3. LATOYA (obstructive sleep apnea) G47.33 Plan She reports doing well on his CPAP. Continue current management/follow-up with pulmonary. 4. Malignant neoplasm of endometrium C54.1 07/2017 hysterectomy per Fernanda Freeman. Radiation. Plan Last report from Dr. Garner reviewed, no evidence of disease. Continue current management per oncology. 5. Healthcare maintenance Z00.00 Plan Has received her flu shot. Prevnar 13 given today, Pneumovax 23 in a year. Bone density ordered. This note was generated with [employer] dictation software. It may contain incorrect words, spelling, and punctuation that were not noted in checking the note before signing. Plan Detail Other Orders Orders: Other Medications Refilled: Coding Level of Care Code Off vis,est,level 4 Diagnoses Essential hypertension I10 Hypertension type: essential hypertension Anxiety and depression F41.9; F32.9 LATOYA (obstructive sleep apnea) G47.33 Malignant neoplasm of endometrium C54.1 Malignant neoplasm of uterus location: body of uterus Malignant neoplasm of body of uterus location: endometrium Healthcare maintenance Z00.00 07/16/19 1214 Date Leda Cuba MD Cosigner Signature: Date (if applicable) CC: Normal [facility] Lipid Profileon 07-16-2019 Cholesterol [Mass/Vol] 164 mg/dL Normal 200 [facility] Comment on above: Result Comment: <200 mg/dL Desirable 200-240 mg/dL Borderline >240 mg/dL High Risk Performed By: #### L 100.0100, L500.4050, L500.4100 #### [facility] [address] [place], [address] Cholesterol in HDL [Mass/Vol] 39 mg/dL Low [facility] Comment on above: Result Comment: The drugs N-Acetylcysteine and Metamizole may falsely depress this assay. Reference Range HDL <40 mg/dL Low HDL Cholesterol HDL >or= 60 mg/dL High HDL Cholesterol Performed By: #### L 100.0100, L500.4050, L500.4100 #### [facility] [address] [place], [address] Cholesterol in LDL [Mass/Vol] 102 mg/dL Normal 0-130 [facility] Comment on above: Performed By: #### L 100.0100, L500.4050, L500.4100 #### [facility] [address] [place], [address] Cholesterol in VLDL [Mass/Vol] 23 mg/dL Normal 5-40 [facility] Comment on above: Performed By: #### L 100.0100, L500.4050, L500.4100 #### [facility] [address] [place], [address] Triglyceride [Mass/Vol] 116 mg/dL Normal [facility] Comment on above: Result Comment: The drugs N-Acetylcysteine and Metamizole may falsely depress this assay. Serum Triglycerides Reference Interval Normal <150 mg/dL Borderline high 150 - 199 mg/dL High 200 - 499 mg/dL Very High > or = 500 mg/dL Performed By: #### L 100.0100, L500.4050, L500.4100 #### [facility] [address] [place], [address] Hemoglobinon 07-30-2017 Hematocrit (HCT) 39.6 % Normal 35.0-47.0 [facility] Comment on above: Performed By: #### H GHCT ####[id number] [place] [address] Hemoglobin mass conc (Bld) 13.0 g/dL Normal 11.7-16.0 [facility] [employer] [facility] Comment on above: Performed By: #### H GHCT ####[address] [address] Surgical Pathologyon 018 Surgical Pathology [id number] [facility] PATHOLOGY AND LABORATORY MEDICINE [address] [place] [address] [id number] SUPPLEMENTAL SURGICAL PATHOLOGY REPORT ___NAME: LIVIAPRISCILA .O.B.: 1950 67 Y F BILLING NO.: [id number]: PAC1O 1PAC [id number] PROCEDURE 07/30/2017 DATE:SURGEON: URI ARANDA MD RECEIVED 07/30/2017 DATE:ATTENDING: URI ARANDA MD REPORT DATE: 07/31/2017 COPIES TO: DIAGNOSIS:A. 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 SENTINEL LYMPH NODES, RIGHT PELVIC, EXCISION - SEVEN NEGATIVE LYMPH NODES (0/7)C. SENTINEL LYMPH NODES, LEFT PELVIC, EXCISION - TWO NEGATIVE LYMPH NODES (0/2) Synoptic Report (Parts A-C): SPECIMEN: Uterus with bilateral tubes and ovaries PROCEDURE: Simple hysterectomy and lymph node sampling SPECIMEN INTEGRITY: Intact uterus HISTOLOGIC TYPE: Endometrioid adenocarcinoma HISTOLOGIC GRADE: FIGO Grade 2 MYOMETRIAL INVASION: Present THICKNESS OF MYOMETRIUM: 3.1 cm DEPTH OF INVASION: 2.5 cm (>50% of myometrium) INVOLVEMENT OF CERVIX: Not identified INVOLVEMENT OF OTHER ORGANS: LEFT OVARY: Not involved LEFT FALLOPIAN TUBE: Not involved RIGHT OVARY: Not involved RIGHT FALLOPIAN TUBE: Not involved LYMPHATIC/VASCULAR INVASION: Absent AJCC 2017 STAGING: pT1b, pN0 MMR TESTING: Forthcoming LANDSCAPE NURSERYMAN TUMOR BLOCK: [id number] REPORT: (08/02/17)IMMUNOHISTOCHEM ISTRY TESTING FOR MISMATCH REPAIR (MMR) PROTEIN:Block: A5MLH1: Intact nuclear expressionMSH2: Intact nuclear expressionMSH6: Intact nuclear expressionPMS2: Intact nuclear expressionBackground non-neoplastic tissue/internal control with intact nuclearexpressionIHC INTERPRETATION:No loss of nuclear expression of MMR proteins: low probability ofmicrosatellite instability-high (MSI-H).COMMENT: There are exceptions to the above IHC interpretations. Theseresults should not be considered in isolation, and clinical correlationwith genetic counseling is recommended to assess the need for germlinetesting.MMR immunostain interpretation rendered by Dr. Swathi Pruitt.ZOIE/ZOIE GARCIA M.D. _CLINICAL INFORMATION: Atypical endometrial hyperplasia. Endometrialhyperplasia with atypia. Endometrial cancer.SPECIMEN: (A) UTERUS (RFN), WITH/WITHOUT TUBES AND OVARIES (B) SENTINEL LYMPH NODE, ALL SITES (C) SENTINEL LYMPH NODE, ALL SITES __GROSS DESCRIPTION:A. Cervix, uterus, bilateral tubes and ovariesReceived in formalin is a uterus with attached cervix and bilateralfallopian tubes and ovaries. The uterus and cervix have been previouslybivalved. Upon reconstruction, the uterus and cervix measure 9.0 x 6.0x 4.5 cm and have a combined weight of 120 grams. The serosal surfaceof the uterus is pink-salvador and bosselated. The cervical mucosa isglistening, smooth, pink-salvador to enciso. The cervical os measures 1.3 cmin length. The squamocolumnar junction is distinct. Thepreviously-opened specimen demonstrates an endocervical canal measuring2.5 cm in length. The endometrial cavity measures 6.0 cm in length andup to 4.5 cm in width. There is a large shaggy pink-salvador tumor massmeasuring 5.5 x 4.0 cm that is attached on the anterior and apicalportions of the endometrial cavity. Upon transection, the tumormeasures 2.5 cm in thickness on the anterior wall with the uninvolvedmyometrium grossly measuring 0.6 cm in thickness. The apical portion ofthe endometrial cavity of the tumor appears to measure 1.5 cm inthickness with the uninvolved myometrium measuring 0.4 cm in thickness. The posterior endometrium averages approximately 1.0 cm in thicknesswith the underlying myometrium free from bulging masses, lesions ornodules. The left ovary and tube are bound together by adhesions. Theleft ovary measures 2.2 x 1.0 x 0.6 cm and weighs 2 grams. Theexternal surface is wrinkled, yellowish-enciso. Upon transection, the cutsurfaces are pink-enciso with white chalky areas. The attached fallopiantube has previously been interrupted and measures 6.0 x 0.5 cm.Fimbriae are identified at one end and are free. Upon transection, apinpoint lumen is identified. The right ovary and tube are boundtogether by adhesions. The right ovary measures 1.4 x 1.0 x 0.7 cm. Itweighs 2 grams. The external surface is wrinkled, pink-enciso. The cutsurfaces are pink-enciso. The attached fallopian tube has previously beeninterrupted and measures approximately 5.0 x 0.6 cm. Fimbriae arepresent at one end and are free. Upon transection, a pinpoint lumen isidentified. Multiple motor vehicle field representative sections are submitted in a totalof 12 cassettes as follows: A1 anterior cervix and lower uterinesegment, A2 posterior cervix and lower uterine segment, A3 and 4 and 5and 6 contain paired sections through the anterior wall, A7 fullthickness section through the apical portion of the uterus, A8 fullthickness section of the posterior wall of the uterus, A9 and 10 leftovary and fallopian tube, A11 and 12 right ovary and fallopian tube.(bits ss, 12)B. Right pelvic sentinel nodesReceived in formalin are portions of lobulated, yellow-enciso tissueaggregating to 4.5 x 4.0 x 4.0 cm. Upon section and palpation,multiple nodules consistent with lymph nodes are identified measuringup to 1.0 cm in greatest dimension. The lymph nodes are submitted inthree cassettes as follows: B1 two lymph nodes, B2 three lymph nodes,B3 three lymph nodes. (bits ss, 3)C. Left pelvic sentinel nodesReceived in formalin are segments of lobulated yellow-enciso adiposetissue aggregating to 3.5 x 2.0 x 2.0 cm. On section and palpationareas of nodularity consistent with lymph nodes are identifiedmeasuring up to approximately 1.2 cm in greatest dimension. On sectionand palpation, there is nodularity consistent with lymph nodesmeasuring up to 1.3 cm in greatest dimension. The lymph nodes areentirely submitted in two cassettes as follows: C1 three lymph nodes,C2 the largest lymph node. (bits ss, 2) JCK/MCDDisclaimer: The following statement applies to allimmunohistochemistry, in situ hybridization, molecular studies, andimmunofluorescence testing.The use of one or more reagents in the above tests is regulated as ananalyte specific reagent (ASR). These tests were developed and theirperformance characteristics determined by the clinical laboratories [facility]. They have not been cleared by the US Food and DrugAdministration (FDA). The FDA has determined that such clearance orapproval is not necessary.All the above immunostains were performed on paraffin embedded tissue.Appropriate positive and negative controls (where applicable) were runin parallel with the patient's specimen; these controls showed expectedstaining pattern, with acceptable intensity of staining.Immunohistochemi bo assays have not been validated on decalcifiedtissues. Results should be interpreted with caution given the raisedpossibility of false negativity on decalcified specimens.Professional Performing Location: [facility] [address] [place] [address]. DEPARTMENT OF PATHOLOGY AND LABORATORY MEDICINE [place], [place] [address] Normal [facility] Comment on above: Performed By: #### S UR ####Performing Lab is in report TS ZOEYon 07-30-2017 ZOEY PATIENT: LIVIA KIM LOC: ASDSO,1SD,120BILL# : [id number] : 1950 SEX: F AGE: [id number] BY: KRISTY ORDOÑEZ ORDERED : 07/30/2017 09:49 COLLECTED: 07/30/2017 10:18ORDER : [id number] RECEIVED : 07/30/2017 10:27 --------TEST NAME RESULT UNITS RANGES ABN FL STABO Group O FRh, Gel POS FAntibody Screen Gel NEG F --- Normal [facility] Comment on above: Performed By: #### T SGL ####[address] [id number] Lab Report: CBC W/Diff, Auto matedon 04-20-2017 Absolute Neut 6.7 X10 3/UL Invalid Interpretation Code 2.0-7.7 [facility] Work Phone: Basophils/100 WBC Auto (Bld) 0.4 % Invalid Interpretation Code 0-1 [facility] [employer] Work Phone: Eosinophils/100 leukocytes 1.4 % Invalid Interpretation Code 0-5 [facility] [employer] Work Phone: Erythrocyte distribution width Auto Ratio (RBC) 13.4 % Invalid Interpretation Code 11.6-14.6 [facility] [employer] Work Phone: [phone] Erythrocytes (RBC) 4.39 10*6/uL Invalid Interpretation Code 4.2-5.4 [facility] [employer] Work Phone: Hematocrit (HCT) 41.8 % Invalid Interpretation Code 37-47 [facility] [employer] Work Phone: Hemoglobin mass conc (Bld) 12.9 g/dL Invalid Interpretation Code 12.0-15.0 [facility] [employer] Work Phone: Immature granulocytes/100 WBC (Bld) 0.200 % Invalid Interpretation Code 0.0-0.9 [facility] [employer] Work Phone: [phone] Lymphocytes 1.73 X10 3/UL Invalid Interpretation Code 0.83-4.51 [facility] [employer] Work Phone: Lymphocytes/100 leukocytes 19.2 % Invalid Interpretation Code 19-41 [facility] [employer] Work Phone: [phone] MCH 29.4 pg Invalid Interpretation Code 27.0-32.0 [facility] [employer] Work Phone: MCHC mass conc (RBC) 30.9 G/GL Low 32-36 [facility] [employer] Work Phone: MCV 95.2 fL Invalid Interpretation Code 81-99 [facility] [employer] Work Phone: Monocytes/100 leukocytes 4.9 % Invalid Interpretation Code 0-10 [facility] [employer] Work Phone: Neutrophils/100 WBC Auto (Bld) 73.9 % High 47-70 [facility] [employer] Work Phone: [phone] Platelets 280 10*3/mm3 Invalid Interpretation Code 150-450 [facility] [employer] Work Phone: PMV by Ankit-Agustín 11.1 fL Invalid Interpretation Code 6.2-12.0 [facility] [employer] Work Phone: RDW SD 46.1 fL High 35.1-43.9 [facility] [employer] Work Phone: WBC (Leukocytes) 9.0 10*3/uL Invalid Interpretation Code 4.4-11.0 [facility] [employer] Work Phone: Lab Report: Comprehensive Me tabolic Profilon 04-20-2017 Alanine aminotransferase (ALT) 11 U/L Low 12-78 [facility] [employer] Work Phone: Albumin 3.5 g/dL Invalid Interpretation Code 3.4-5.0 [facility] [employer] Work Phone: Albumin/Globulin Ratio 0.9 {ratio} Invalid Interpretation Code 0.9-2.4 [facility] [employer] Work Phone: Alkaline phosphatase (ALP) 70 U/L Invalid Interpretation Code 45-117 [facility] [employer] Work Phone: Anion gap 9 mmol/L Invalid Interpretation Code 5-15 [facility] [employer] Work Phone: Aspartate aminotransferase (AST) 9 U/L Low 15-37 [facility] [employer] Work Phone: Bilirubin (total) 0.50 mg/dL Invalid Interpretation Code 0.20-1.00 [facility] [employer] Work Phone: BUN/Creatinine Ratio 21.5 RATIO High 10-20 [facility] [employer] Work Phone: Calcium 8.6 mg/dL Invalid Interpretation Code 8.5-10.1 [facility] [employer] Work Phone: Chloride 105 mmol/L Invalid Interpretation Code 98-107 [facility] [employer] Work Phone: [phone] CO2 26.0 mmol/L Invalid Interpretation Code 21.0-32.0 [facility] [employer] Work Phone: Creatinine 0.65 mg/dL Invalid Interpretation Code 0.55-1.02 [facility] [employer] Work Phone: eGFR (non-black) 97 mL/min/{1.73_m2} Invalid Interpretation Code >60 [facility] [employer] Work Phone: eGFR (non-black) 117 mL/min/{1.73_m2} Invalid Interpretation Code >60 [facility] [facility] Work Phone: Globulin 3.7 g/dL Invalid Interpretation Code 2.2-4.2 [facility] [employer] Work Phone: Glucose mass conc 128 mg/dL High 70-110 [facility] Work Phone: Potassium molar conc 4.0 mmol/L Invalid Interpretation Code 3.5-5.1 [facility] [employer] Work Phone: Protein 7.2 g/dL Invalid Interpretation Code 6.4-8.2 [facility] [employer] Work Phone: Sodium 140 mmol/L Invalid Interpretation Code 136-145 [facility] [employer] Work Phone: Urea nitrogen 14 mg/dL Invalid Interpretation Code 7-18 [facility] [employer] Work Phone: Lab Report: Lipid Profileon 04-20-2017 Cholesterol 237 mg/dL High 200 [facility] Work Phone: HDL Cholesterol 40 mg/dL Invalid Interpretation Code [facility] Work Phone: LDL Cholesterol 167 mg/dL High 0-130 [facility] Work Phone: Triglyceride 148 mg/dL Invalid Interpretation Code [facility] Work Phone: very low density lipoproteins 30 mg/dL Invalid Interpretation Code 5-40 [facility] Work Phone: Lab Report: T4 Free Directon 04-20-2017 Thyroxine (T4) free 1.16 ng/dL Invalid Interpretation Code 0.76-1.46 [facility] [employer] Work Phone: Lab Report: Thyroid Stim Hor cally (TSH)on 04-20-2017 Thyroid stimulating hormone (TSH) 1.18 u[iU]/mL Invalid Interpretation Code 0.358-3.74 [facility] [employer] Work Phone: Office Visit: New Pt. Visito n 04-20-2017 Documentation of current medications (procedure) Done Invalid Interpretation Code [facility] [employer] Work Phone: Documentation of current medications (procedure) T Invalid Interpretation Code [facility] Work Phone: Fall risk assessment No Invalid Interpretation Code [facility] Work Phone: Tobacco use CPHS Never smoker Invalid Interpretation Code [facility] Work Phone: Vital Signs Date Time Vital Sign Value Performing Clinician Facility 04-20-2017 07:54-0400 BMI (Body Mass Index) 41.98 kg/m2 Ce Leesamira [facility] Work Phone: 04-20-2017 07:54-0400 Body Temperature 98.3 [degF] Ce Paulino [facility] Work Phone: 04-20-2017 07:54-0400 BP Diastolic 89 mm[Hg] Ce Paulino [facility] Work Phone: 04-20-2017 07:54-0400 BP Systolic 158 mm[Hg] Ce Leememochristopher [facility] Work Phone: 04-20-2017 07:54-0400 Height 160.02 cm Celexa Paulino [facility] Work Phone: 04-20-2017 07:54-0400 Pulse (Heart Rate) 102 /min Celexa Paulino [facility] Work Phone: 04-20-2017 07:54-0400 Respiratory Rate 16 /min Ce Paulino [facility] Work Phone: 04-20-2017 07:54-0400 Weight 107.5 kg Ce Paulino [facility] Work Phone: Encounters Encounter Date Encounter Type Care Provider Facility Start: 07-30-2017 Ambulatory Ur[facility]udolph [facility] Start: 07-25-2017 Ambulatory Uri Ar[facility] Procedures Date Procedure Procedure Detail Performing Clinician Start: 04-20-2017 End: 04-23-2017 *CBC with Differential Leda steven MD Work Phone: Start: 04-20-2017 End: 04-23-2017 *CMP Complete Metabolic Panel Leda Cuba MD Work Phone: Start: 04-20-2017 End: 04-23-2017 Colonoscopy flx dx w/collj spec when pfrmd Leda Cuba MD Work Phone: Start: 04-20-2017 End: 04-23-2017 DEXA scan Leda Landin Work Phone: Start: 04-20-2017 End: 04-23-2017 Lipid 1996 panel - Serum or Plasma Leda Cuba MD Work Phone: Start: 04-20-2017 End: 04-23-2017 Mammogram, screening Leda Cuba MD Work Phone: Start: 04-20-2017 End: 04-21-2017 Referral to systems support specialist Leda sin MD Work Phone: Start: 04-20-2017 End: 04-23-2017 Thyrotropin [Units/volume] in Serum or Plasma Leda Cuba MD Work Phone: Start: 04-20-2017 End: 04-23-2017 Thyroxine (T4) free [Mass/volume] in Serum or Plasma Leda Cuba MD Work Phone: Plan of Treatment Date Care Activity Detail Author Start: 05-30-2017 End: 05-30-2017 Appointment Appointment [facility] Work Phone: Start: 05-09-2017 End: 05-09-2017 Appointment Appointment [facility] Work Phone: Start: 04-30-2017 End: 04-30-2017 Appointment Appointment [facility] Work Phone: Start: 04-23-2017 End: 04-23-2017 Colonoscopy flx dx w/collj spec when pfrmd Colonoscopy [facility] Work Phone: Start: 04-20-2017 End: 04-23-2017 *CBC with Differential *CBC with Differential [facility] Work Phone: Start: 04-20-2017 End: 04-23-2017 *CMP Complete Metabolic Panel *CMP Complete Metabolic Panel [facility] [employer] Work Phone: Start: 04-20-2017 End: 04-23-2017 Colonoscopy flx dx w/collj spec when pfrmd Colonoscopy [facility] [employer] Work Phone: Start: 04-20-2017 End: 04-23-2017 DEXA scan DEXA scan [facility] [employer] Work Phone: Start: 04-20-2017 End: 04-23-2017 Gynecology & Obstetrics Gynecology & Obstetrics Kaylin Porter, [facility], [address], [address], [place], [address] [facility] [employer] Work Phone: Start: 04-20-2017 End: 04-23-2017 Lipid panel [AGGREGATE] *Lipid Profile [facility] [employer] Work Phone: Start: 04-20-2017 End: 04-23-2017 Mammogram, screening Mammogram, Screening, both breasts [facility] [employer] Work Phone: Start: 04-20-2017 End: 04-23-2017 Thyroid stimulating hormone (TSH) *TSH [facility] [employer] Work Phone: Start: 04-20-2017 End: 04-23-2017 Thyroxine (T4) free *T4 free [facility] [employer] Work Phone: Payers Date Payer Category Payer Policy ID Medicare Summary Purpose Family History No Family History Records FoundNo Family History Records Found Advance Directives No Advanced Directives Records FoundNo Advanced Directives Records Found Additional Source Comments INFORMATION SOURCE (unrecogn ized section and content) DATE CREATED AUTHOR 12/20/2017 [facility] [employer] [facility] DATE CREATED AUTHOR AUTHOR'S ORGANIZ ATION 01/10/2020 [facility] FOR RECORDS PERTAINING TO PATIENTS WHO ARE OR HAVE BEEN ENROLLED IN A CHEMICAL DEPENDENCY/SUBSTANCEABUSE PROGRAM, SOME INFORMATION MAY BE OMITTED. This clinical summary was aggregated from multiple sources. Caution should be exercised in using it in the provision of clinical care. This summary normalizes information from multiple sources, and as a consequence, information in this document may materially change the coding, format and clinical context of patient data. In addition, data may be omitted in some cases. CLINICAL DECISIONS SHOULD BE BASED ON THE PRIMARY CLINICAL RECORDS. [facility] [employer] [facility]. provides no warranty or guarantee of the accuracy or completeness of information in this document.
--- NOTE | 2025-03-01 18:05 | RAD_ITS ---
PROCEDURE: CHEST PA AND LATERAL 03/01/2025 REASON FOR EXAM: COUGH AND DYSPNEA TECHNIQUE: Procedure Code: RADCXR Modality: DX Procedure: CHEST PA AND LATERAL COMPARISON: None. FINDINGS: LUNGS AND PLEURA: No focal airspace consolidation. No pleural effusion or pneumothorax. HEART AND MEDIASTINUM: The cardiac silhouette is mildly enlarged. The mediastinal contour is normal. BONES: No acute osseous abnormality. RAD/Chest PA and Lateral IMPRESSION: NO ACUTE FINDINGS. Reading Location: [id number]
[2025-03-01 18:07] LABS: Hematocrit 40.7 % (37-47); Hemoglobin 13.5 g/dL (12.0-15.0); Immature Granulocytes Count 0.130 X10^3/uL (0.0-0.0); Mean Corp Hgb Conc 33.2 g/dL (32-36); Mean Corpuscular Volume 91.9 fL (81-99); Mean Platelet Vol. 10.7 fl (6.2-12.0); NRBC Flagged by Analyzer 0 % (0-5); Platelet Count 273 K/mm3 (150-450); RBC Distribution Width CV 12.7 % (11.6-14.6); RBC Distribution Width SD 42.2 fl (35.1-43.9); Red Blood Count 4.43 M/mm3 (4.2-5.4); White Blood Count 13.3 K/mm3 (4.4-11.0)
[2025-03-01 18:19] VITALS: BP 154/67; PULSE 124; RESP 16; TEMP 36.9; O2SAT 94
[2025-03-01 18:28] LABS: Anion Gap 15 (5-15); BUN 8 mg/dL (4-19); BUN/Creat Ratio 14.7 RATIO (10-20); Calcium,Total 9.4 mg/dL (7.6-11.0); Carbon Dioxide 23.0 mmol/L (21.0-32.0); Chloride 100 mmol/L (98-108); Estimated Creatinine Clearance 77.57 ml/min (50-250); Glucose 176 mg/dL (70-99); Potassium 3.4 mmol/L (3.3-5.1); Troponin T High Sensitivity 11 ng/L (<=14)
[2025-03-01 19:14] VITALS: BP 152/81; PULSE 125; RESP 20; TEMP 36.8; O2SAT 90
[2025-03-01 19:29] VITALS: O2SAT 90
[2025-03-01 19:48] VITALS: BP 149/83; PULSE 122; RESP 18; TEMP 36.7; O2SAT 93
== END 2025-03-01 19:55 | disposition home or self-care (01) ==
PROVIDERS: Emergency Provider Emergency Medicine; PCP Internal Medicine; Visit Provider Emergency Medicine
DX: J06.9 Acute upper respiratory infection, unspecified (principal); E03.9 Hypothyroidism, unspecified; Z85.41 Personal history of malignant neoplasm of cervix uteri; Z90.710 Acquired absence of both cervix and uterus; Z79.899 Other long term (current) drug therapy
CPT/HCPCS: 71046; 80048; 84484; 85025; 87631; 93005; 94640; 96374; 99285; A4216